=== PATIENT | female | born 1985 | race Caucasian/White ===

== ENCOUNTER 2018-11-30 09:31 | Inpatient (IN) | payer OTHER ==
[~2018-11-30] VITALS: Ht 162.6 cm; Wt 76.2 kg
[2018-12-25] MEDS ORDERED: PRENATAL TABLE1 EACH PO (03:25)
[2018-12-25] MEDS ORDERED: IRON325 MG PO (03:26)
[2018-12-25] MEDS ORDERED: FOLIC ACID1 MG PO (03:26)
== END 2018-12-27 12:19 | disposition home or self-care (01) | DRG 807 ==
LOC: OB/GYN 12-07 14:00 → LDR 12-25 03:11 → OB/GYN 12-25 03:26 → LDR 12-25 03:37 → OB/GYN 12-25 18:46
PROVIDERS: ADMIT Obstetrics & Gynecology Maternal & Fetal Medicine
PROC: 10E0XZZ Delivery of Products of Conception, External Approach (ICD-10-PCS; principal; 2018-12-25)
PROC: 0UQGXZZ Repair Vagina, External Approach (ICD-10-PCS; 2018-12-25)
PROC: 0W8NXZZ Division of Female Perineum, External Approach (ICD-10-PCS; 2018-12-25)
PROC: 3E033VJ Introduction of Other Hormone into Peripheral Vein, Percutaneous Approach (ICD-10-PCS; 2018-12-25)
PROC: 4A1HXCZ Monitoring of Products of Conception, Cardiac Rate, External Approach (ICD-10-PCS; 2018-12-25)
DX: O71.4 Obstetric high vaginal laceration alone (principal); Z37.0 Single live birth; Z3A.39 39 weeks gestation of pregnancy; Z22.330 Carrier of Group B streptococcus

== ENCOUNTER 2018-12-14 10:11 | Outpatient (CLI) | payer OTHER | END 2018-12-14 11:01 | disposition home or self-care (01) | LOC: NST 10:11 | DX: Z34.83 Encounter for supervision of other normal pregnancy, third trimester (principal) ==

== ENCOUNTER 2024-12-21 14:45 | Inpatient (IN) | payer OTHER ==
[~2024-12-21] VITALS: Ht 162.6 cm; Wt 77.1 kg
[~2024-12-21 14:45] MED LIST: FOLIC ACID1 MG PO; IRON325 MG PO; PRENATAL TABLE1 EACH PO
[2025-01-02] MEDS ORDERED: RINGERS SOLUTION,LACTATED 1,000 ML IV SCH (05:45)
[2025-01-02 06:06] VITALS: BP 130/75
[2025-01-02 07:10] LABS: BASO % 0.3 % (0.1-1.2); EOS # 0.07 (0.04-0.54); EOS % 0.8 % (0.7-7.0); LYMPH # 1.36 (1.18-3.74); LYMPH % 15.0 % (19.3-53.1); MEAN PLATELET VOLUME 11.50 fl (9.4-12.4); MONO # 0.46 (0.24-0.82); MONO % 5.1 % (4.7-12.5); NEUT # 7.07 (1.56-6.13); NEUT % 78.1 % (34.0-71.1); RED CELL DISTRIBUTION WIDTH 13.8 % (11.6-14.4)
[2025-01-02 07:31] LABS: INR < 0.93
[2025-01-02] MEDS ORDERED: OXYTOCIN 500 ML IV ONE (07:45)
[2025-01-02 07:48] VITALS: BP 134/72
[2025-01-02] MEDS ORDERED: MORPHINE SULFATE 4 MG/ML CARTRIDGE IV ONE (11:30)
[2025-01-02 11:39] VITALS: BP 140/76
[2025-01-02] MEDS ORDERED: ERYTHROMYCIN BASE OPHT 1GM EACH TUBE OP ONE (12:21)
[2025-01-02] MEDS ORDERED: OXYTOCIN 20 UNITS/1000ML RL PIGGYBAG IV ONE (12:21)
[2025-01-02] MEDS ORDERED: LIDOCAINE HCL 1% 10ML VIAL ONE (12:22)
[2025-01-02] MEDS ORDERED: CHLORHEXIDINE GLUCONATE 120 ML BOTTLE TOP ONE (12:22)
[2025-01-02 13:00] VITALS: BP 129/65
[2025-01-02] MEDS ORDERED: OXYTOCIN 1,000 ML IV SCH (13:15)
[2025-01-02] MEDS ORDERED: CHLORHEXIDINE GLUCONATE 120 ML BOTTLE TP SCH (13:15)
[2025-01-02] MEDS ORDERED: ACETAMINOPHEN WITH CODEINE 1 UDTAB TABLET PO PRN (13:15)
[2025-01-02 13:40] VITALS: BP 132/69
[2025-01-02] MEDS ORDERED: BENZOCAINE/MENTHOL 90 ML BOTTLE TOP SCH (18:49)
[2025-01-02 19:07] VITALS: BP 121/73
[2025-01-03 00:40] VITALS: BP 116/75
[2025-01-03 08:30] VITALS: BP 124/74
[2025-01-03 19:09] VITALS: BP 110/66
[2025-01-04 08:00] VITALS: BP 130/77
== END 2025-01-04 12:43 | disposition home or self-care (01) | DRG 807 ==
LOC: LDR 01-02 05:36 → OB/GYN 01-02 05:36 → LDR 01-02 05:54 → OB/GYN 01-02 12:31 → LDR 01-03 14:45 → OB/GYN 01-04 12:43
PROVIDERS: ADMIT Obstetrics & Gynecology; ATTEND Obstetrics & Gynecology
PROC: 10E0XZZ Delivery of Products of Conception, External Approach (ICD-10-PCS; principal; 2025-01-02)
PROC: 4A1HXCZ Monitoring of Products of Conception, Cardiac Rate, External Approach (ICD-10-PCS; 2025-01-02)
DX: O80 Encounter for full-term uncomplicated delivery (principal); Z37.0 Single live birth; Z3A.39 39 weeks gestation of pregnancy

== ENCOUNTER → 2024-12-22 | Outpatient (CLI) | payer OTHER | END | disposition home or self-care (01) | LOC: MAMO-SONO 09:04 → NST 09:04 | PROVIDERS: ATTEND Obstetrics & Gynecology Maternal & Fetal Medicine | DX: Z34.83 Encounter for supervision of other normal pregnancy, third trimester (principal) ==